=== PATIENT | male | born 1985 | race Caucasian/White ===

== ENCOUNTER → 2017-01-25 | Outpatient (CLI) | payer OTHER ==
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
== END | disposition home or self-care (01) ==
LOC: CCAT 12:50
DX: M54.2 Cervicalgia (principal); M50.31 Other cervical disc degeneration, high cervical region
CPT/HCPCS: 72125